=== PATIENT | male | born 1960 | race Caucasian/White ===

== ENCOUNTER → 2022-06-11 13:10 | Outpatient (CLI) | payer OTHER, SELFPAY ==
--- NOTE | ~2022-06-11 | DEXA_ITS ---
Bone Density Report Name: GISSELL VILLANUEVA Age: 62 Sex: Male Ethnicity: White Date of : 1960 Indication: parental hip fracture; Referring Provider: GAYLA OROPEZA Study: Bone densitometry was performed. Exam Date: June 11, 2022 Accession number: [id number] Bone Density: Region BMD T-score Z-score Classification AP Spine (L1-L4) 1.037 -0.5 0.2 Normal Femoral Neck (Left) 0.724 -1.5 -0.5 Osteopenia Total Hip (Left) 0.846 -1.2 -0.8 Osteopenia World Health Organization criteria for BMD impression classify patients as: Normal (T-score at or above -1.0), Osteopenia (T-score between -1.0 and -2.5), or Osteoporosis (T-score at or below -2.5). 10-year Fracture Risk(1): Major Osteoporotic Fracture 12% Hip Fracture 0.8% Reported Risk Factors: [place] (), Neck BMD=0.724, BMI=28.3, parental fracture (1) FRAX(R) Version 3.08. Fracture probability calculated for an untreated patient. Fracture probability may be lower if the patient has received treatment. Clinical Information Provided by Patient: Parent has had a hip fracture Has used the following medications: Vitamin D, occasional calcium, uses [employer] Patient maximum height was 68 Drinks caffeinated beverages Impression: The patient has low bone mass, based on the Left Femoral Neck T-score. The patient has an estimated ten-year risk of hip fracture of 0.8% and an estimated ten-year risk of major fracture of 12%, based on the WHO FRAX algorithm. The patient has risk factors, including: parental hip fracture. Discussion: BONE DENSITY IS LOW AT ONE OR MORE SKELETAL SITES. This patient's lowest T-score is low at one or more skeletal sites. It meets the World Health Organization's (WHO) criteria for ?low bone mass? (T-score between -1.0 and -2.5). The patient's 10-year risk of fracture as calculated by FRAX is less than the threshold where pharmacological therapy is recommended by the National Osteoporosis Foundation (NOF). However, all treatment decisions require clinical judgment and consideration of individual patient factors, including patient preferences, comorbidities, previous drug use, risk factors not captured in the FRAX model (e.g., frailty, falls, vitamin D deficiency, increased bone turnover, interval significant decline in bone density) and possible under or overestimation of fracture risk by FRAX. The patient should follow a healthful lifestyle (good nutrition with adequate calcium and vitamin D, and appropriate weight-bearing exercise). Follow-Up: Consider repeating this study in 2 to 3 years to reassess this patient's status, or sooner if there is some new clinical indication. Reported by: [facility] on 06/11/2022 1:38:00 PM. Reviewed, dictated and finalized at location [facility]ARCIA
== END ==
PROVIDERS: PCP Nurse Practitioner; Visit Provider Nurse Practitioner Adult Health
DX: M85.88 Other specified disorders of bone density and structure, other site (principal); M85.852 Other specified disorders of bone density and structure, left thigh
CPT/HCPCS: 77080

== ENCOUNTER 2024-01-13 07:42 | Outpatient (CLI) | payer OTHER, SELFPAY ==
--- NOTE | ~2024-01-13 | CT_ITS ---
EXAMINATION: CT abdomen pelvis wo/w con DATE: 01/13/2024 08:32 INDICATION: Microscopic hematuria. TECHNIQUE: Computed tomography (CT) of the abdomen and pelvis was performed without and with intraven ous contrast using a total of 130 mL Omnipaque-350 intravenous contrast with a double-bolus technique for simultaneous opacification of the renal parenchyma and renal collecting system. Automated exposu re control and iterative reconstruction technique were employed. The dose-length product was 1768.96 mGy-cm. COMPARISON: None FINDINGS: The visualized portions of the lung bases demonstrate mild atelectasis. No pleural effusion. The hear t is normal. No pericardial effusion. There are coronary artery calcifications. There are cysts in th e liver measuring up to 3.1 cm. The gallbladder, spleen, pancreas, and adrenal glands are normal. The re is cortical thinning of right kidney. There are parenchymal calcifications in right kidney. There is no urolithiasis. The ureters are well opacified and are normal. The bladder is not well distended. There is diffuse bladder wall thickening. The prostate is mildly enlarged. There are brachytherapy s eeds in the prostate. There are bilateral inguinal hernias containing fat. There is diverticulosis of the colon without evidence of diverticulitis. The appendix is normal. There are no dilated loops of bowel. There are no pathologically enlarged lymph nodes. There is no free intraperitoneal fluid. Ther e is resurfacing of right femoral head. There is mild lumbar spondylosis. IMPRESSION: 1. Diffuse bladder wall thickening, likely secondary to chronic outlet obstruction from the mildly en larged prostate. Reviewed, dictated and finalized at location A. IMPRESSION: 1. Diffuse bladder wall thickening, likely secondary to chronic outlet obstruct ion from the mildly enlarged prostate.
[2024-01-13 08:16] LABS: Estimated Glomerular Filt Rate 51
== END 2024-01-13 07:43 | disposition home or self-care (01) ==
PROVIDERS: PCP Nurse Practitioner; Visit Provider Physician Assistant
DX: R31.29 Other microscopic hematuria (principal)
CPT/HCPCS: 74178; Q9967